=== PATIENT | male | born 1965 | race Two or more races ===

== ENCOUNTER 2020-04-24 12:36 | Inpatient (IN) | payer MEDICAID ==
[~2020-04-24] VITALS: Ht 167.6 cm; Wt 67.1 kg
--- NOTE | 2020-04-24 12:36 | NUR ---
PT WILL FROM [facility] C/O FEVER AND ALTERED MENTAL STATUS, PT IS AAOX0, NOT IN RESPIRATORY DISTRESS, HOOKED TO DISPENSARY TECHNICIAN, KEPT RESTED AND COMFORTABLE, WILL CONTINUE TO MONITOR.
--- NOTE | 2020-04-24 12:48 | NUR ---
IV LINE ESTABLISHED BLOOD DRAWN AND SENT TO LAB.
[2020-04-24] MEDS ORDERED: CEFTRIAXONE 1GM BAG (ER ONLY) 50 ML IV ONE ×2 (12:58→13:00)
[2020-04-24] MEDS ORDERED: AZITHROMYCIN 500 MG VIAL ONE (12:58)
[2020-04-24] MEDS ORDERED: DEXAMETHASONE SOD PHOSPHATE 10 MG/ML VIAL ONE (12:58)
[2020-04-24] MEDS ORDERED: ACETAMINOPHEN 650 MG/SUPP.RECT RC ONE ×2 (12:58→13:00)
[2020-04-24] MEDS ORDERED: DEXAMETHASONE SOD PHOSPHATE 10 MG/ML VIAL IV ONE (13:00)
[2020-04-24] MEDS ORDERED: AZITHROMYCIN 500 MG in IV D5W 250 ML IV ONE (13:00)
[2020-04-24] MEDS ORDERED: IV NS 0.9% 500 ML IV ONE (13:00)
--- NOTE | 2020-04-24 13:10 | NUR ---
NILESH CALLED ITS [facility].
[2020-04-24 13:12] LABS: BASOPHILS % (AUTO) 0.4 % (0.0-2.0); EOSINOPHILS % (AUTO) 7.6 % (0.0-6.0); HEMATOCRIT 37 % (39-51); HEMOGLOBIN 12.1 g/dL (13.5-17.5); LYMPHOCYTES # (AUTO) 2.3 /CMM (0.8-4.8); MEAN CORPUSCULAR HGB CONC 33 g/dl (31.0-36.0); MEAN CORPUSCULAR VOLUME 91 fL (80-96); MONOCYTES # (AUTO) 0.6 /CMM (0.1-1.30); MONOCYTES % (AUTO) 5.5 % (2.0-12.0); NEUTROPHILS # (AUTO) 6.6 /CMM (1.8-8.9); NEUTROPHILS % (AUTO) 64.5 % (43.0-81.0); PLATELET COUNT (AUTO) 449 /CMM (150-450); RED BLOOD CELL COUNT(AUTO) 4.03 MIL/uL (4.5-6.0); WHITE BLOOD COUNT (AUTO) 10.3 K/uL (4.3-11.0)
[2020-04-24 13:13] LABS: APPEARANCE,URINE Slightly Cloudy (CLEAR); BILIRUBIN,URINE Negative (NEGATIVE); BLOOD, URINE Trace-intact Ery/uL (NEGATIVE); COLOR,URINE Yellow (YELLOW); KETONES,URINE Negative (NEGATIVE); LEUKOCYTE ESTERASE ,URINE Large (NEGATIVE); NITRITE, URINE Positive (NEGATIVE); PH,URINE 7.5 (5.0-8.0); PROTEIN,URINE Negative (NEGATIVE); UGLUCOSE Negative (NEGATIVE); UROBILINOGEN,URINE 0.2 EU/dL (0.2)
[2020-04-24 13:19] LABS: CALCIUM, SERUM 8.9 mg/dL (8.5-10.1); CARBON DIOXIDE 31 mmol/L (21-32); CHLORIDE 101 mmol/L (98-107); CREATININE 0.6 mg/dL (0.6-1.3); GLUCOSE 118 mg/dL (74-106); POTASSIUM 4.3 mmol/L (3.5-5.1); SODIUM SERUM 138 mmol/L (136-145); UREA NITROGEN, BLOOD 11 mg/dL (7-18)
[2020-04-24 13:32] LABS: ALANINE AMINOTRANSFERASE 46 U/L (12-78); ALBUMIN 2.9 g/dL (3.4-5.0); ALKALINE PHOSPHATASE 117 U/L (46-116); ASPARTATE AMINOTRANSFERASE 19 U/L (15-37); B-TYPE NATRIURETIC PEPTIDE 207 PG/ML (0-125); BILIRUBIN,TOTAL 0.2 mg/dL (0.2-1.0); TOTAL PROTEIN, SERUM 7.3 g/dL (6.4-8.2)
[2020-04-24 13:37] LABS: BACTERIA,URINE 3+ /HPF (None Seen); SQUAMOUS EPITHELIAL CELL,UR Few /HPF (None Seen)
[2020-04-24 13:52] LABS: C-REACTIVE PROTEIN 1.6 mg/dL (0.0-0.9); CREATINE KINASE, TOTAL 18 U/L (39-308); FERRITIN 122 ng/mL (8-388)
--- NOTE | 2020-04-24 13:57 | NUR ---
ROOM [facility]
--- NOTE | 2020-04-24 14:32 | NUR ---
report given to fco wise for jesus alberto
--- NOTE | 2020-04-24 15:06 | NUR ---
pt transported to unit on gurney with emt and rn at bedside w/ acls protocol. nad noted during transport.
[2020-04-24 15:22] LABS: D-DIMER 1.65 mg/L(FEU (0.17-0.50)
--- NOTE | 2020-04-24 15:30 | NUR ---
RN ADMITTING NOTE Patient arrived around 151, received report from Desmond in ER. Patient arrived on gurney, A/O x0, non-verbal. T-piece Portex #[address] on 5L/min saturating 98%. Patient suctioned and presents with thick white/yellow secretions. Vital signs BP 134-80, HR 85, SpO2 98% T 97.4F. Tele monitor SR 80s. Skin assessed and skin is intact. G-tube in place, clamped. Patient given bed bath, linens and gown changed. Bed is in lowest position, side rails x3 in upright position, fall safety and aspiration precautions enforced. Isolation precautions due to pending COVID results. Will notify MD that patient has arrived and await admitting orders.
[2020-04-24 15:38] VITALS: BP 134/80
[2020-04-24 16:00] VITALS: BP 134/80
[2020-04-24] MEDS ORDERED: MAG HYDROX/AL HYDROX/SIMETH 30 ML UDC PO PRN (16:00)
[2020-04-24] MEDS ORDERED: MAGNESIUM HYDROXIDE 30 ML UDC PO PRN (16:00)
[2020-04-24] MEDS ORDERED: ONDANSETRON HCL/PF 4 MG/2 ML VIAL IVP PRN (16:00)
[2020-04-24] MEDS ORDERED: ZOLPIDEM TARTRATE 5 MG TABLET PO PRN (16:00)
[2020-04-24] MEDS ORDERED: Z GUARD REMEDY 2 OZ OINT TP PRN (16:00)
[2020-04-24] MEDS ORDERED: HYDROCODONE/APAP 5/325MG 1 EACH TABLET PO PRN (16:00)
--- NOTE | 2020-04-24 16:16 | NUR ---
RN NOTE Spoke with sub-acute RN @ [facility], they will fax over Med-Recon since it was not found in patient's records.
[2020-04-24] MEDS: DEXAMETHASONE SOD PHOSPHATE 4 MG/ML VIAL IV SCH (16:54)
[2020-04-24] MEDS: ENOXAPARIN SODIUM 40 MG/0.4 ML DISP.SYRIN SQ SCH (16:56)
[2020-04-24] MEDS: JEVITY 1.2 CAL 1,000 ML BOTTLE GT PRN (17:42)
--- NOTE | 2020-04-24 17:42 | NUR ---
RN NOTE GTF started at 30mls/hr. Will endorse to mini shifter to advance as tolerated.
--- NOTE | 2020-04-24 18:27 | NUR ---
RN CLOSING NOTE Patient is resting in bed, A/O x0, non-verbal, patient is in no acute distress at this time, t-piece in place Portex #7 on 3L/min saturating 96-100%. Patient suctioned with thick yellow/white secretions. G-tube in place running Jevity 1.2 @ 30mls/hr, will endorse to machinist 2nd shift to advance as tolerated. IV line in the LFA#18g is clean and intact running TKO. DVT pumps are in place. All patient needs met, all due medications given, patient kept clean and dry throughout shift, fall safety and aspiration precautions enforced. Will endorse to machinist 2nd shift for IRIS. Addendum: 04/24/20 at 1846 by FLAVIO GRIMM RN ISOLATION PRECAUTIONS COVID RESULTS PENDING.
[2020-04-24 20:00] VITALS: BP 131/77
--- NOTE | 2020-04-24 20:00 | NUR ---
RT NOTE PT RECEIVED ON T-PIECE @ 3LPM. SX DONE, MODERATE THICK YELLOW SECRETIONS NOTED. NO DISTRESS NOTED AT THIS TIME. CONT. PULSE OX CONNECTED. WILL MONITOR. Addendum: 04/24/20 at 2000 by IVONE MARQUEZ RT Amended: Links added.
--- NOTE | 2020-04-24 20:00 | NUR ---
RN OPENING NOTE PT RECEIVED IN BED OBTUNDED. PT IS ON 3 L VIA TRACH SATING 99%. NO RESPIRATORY DISTRESS NOTED. PT HAS TEMP 100. COOLING MEASURES PROVIDED. SAFETY MEASURES IN PLACE. BED AT LOWEST POSITION, LOCKED AND SIDE RAILS UP, HOB ELEVATED, WILL CONTINUE TO MONITOR.
[2020-04-24] MEDS: ACETAMINOPHEN 325 MG TABLET PO PRN (22:44)
--- NOTE | 2020-04-24 23:00 | NUR ---
RN NOTE PT HAS FEVER 101.3 TYLENOL 650 MG GIVEN WITH COOLING MEASURE.
--- NOTE | 2020-04-24 23:06 | NUR ---
RN CLOSING NOTE WILL ENDORSE PT TO THE NURSE FOR IRIS.
[2020-04-25] VITALS (9 sets, daily range): BP systolic 136–160; BP diastolic 46–98
--- NOTE | 2020-04-25 01:58 | NUR ---
RT NOTE INCREASED TO 8LPM DUE TO LOW SATURATION AND HIGH HEART RATE. TEMP @ 101. RN GIOVANYWNOAH AT BEDSIDE. WILL CONTINUE TO MONITOR.
--- NOTE | 2020-04-25 03:00 | NUR ---
RN OPENING NOTE RECICED A PATIENT IN BED OBTUNDED NONVERBAL,ON TRACH #7 ON OXYGEN 7L CONNECTED TO TRACH,O2:98% HR 97 ON G-TUBE FEEDING JEVITY 1.2 70 CC/HR G-TUBE SITE IS INTACT,IV SITE IS ON LEFT FOREARM 18 G,R/O FOR COVID PENDING CONTINUE TO MONITOR
--- NOTE | 2020-04-25 03:30 | NUR ---
RT NOTE TITRATED FIO2 TO 5LPM. PT APPEARS TO BE COMFORTABLE. NO DISTRESS NOTED AT THIS TIME. SX DONE, TRACH SECURED AND PATENT. CHARGE NURSE NEVA SAXENA.
[2020-04-25 06:20] LABS: BASOPHILS % (AUTO) 0.1 % (0.0-2.0); HEMATOCRIT 37 % (39-51); HEMOGLOBIN 11.9 g/dL (13.5-17.5); LYMPHOCYTES # (AUTO) 1.3 /CMM (0.8-4.8); LYMPHOCYTES % (AUTO) 11.8 % (20.0-44.0); MEAN CORPUSCULAR HGB CONC 32 g/dl (31.0-36.0); MEAN CORPUSCULAR VOLUME 92 fL (80-96); MONOCYTES # (AUTO) 0.2 /CMM (0.1-1.30); MONOCYTES % (AUTO) 1.8 % (2.0-12.0); NEUTROPHILS # (AUTO) 9.4 /CMM (1.8-8.9); NEUTROPHILS % (AUTO) 86.3 % (43.0-81.0); PLATELET COUNT (AUTO) 437 /CMM (150-450); RED BLOOD CELL COUNT(AUTO) 4.03 MIL/uL (4.5-6.0); WHITE BLOOD COUNT (AUTO) 10.9 K/uL (4.3-11.0)
[2020-04-25 06:42] LABS: CALCIUM, SERUM 9.3 mg/dL (8.5-10.1); CREATININE 0.6 mg/dL (0.6-1.3); MAGNESIUM 2.3 mg/dL (1.8-2.4); PHOSPHORUS 4.2 mg/dL (2.5-4.9); POTASSIUM 4.4 mmol/L (3.5-5.1)
[2020-04-25 06:46] LABS: THYROID STIMULATING HORMONE 0.615 uIU/mL (0.358-3.74)
[2020-04-25] MEDS: PANTOPRAZOLE 40 MG TABLET.DR PO SCH (07:31)
--- NOTE | 2020-04-25 07:31 | NUR ---
RN CLOSING NOTE PATIENT IS IN BED ON TRACH NUMBER 7 CONFUSED EYE CLOSED ON 5L OXYGEN VIA CONNECTED TO TRACH BREATHING IS EVEN AND UNLABORED NO SOB NOTED,ALL DUE MEDS GIVEN MD ORDERED VIA G-TUBE ,G-TUBE FEEDING RUNNING ON 30 CC/HR GOAL IS 70CC/HOUR.KEPT CLEAN AND DRY ALL THE TIME,ENDORSE NEXT COMING SHIFT FOR CONTINUATION OF CARE
--- NOTE | 2020-04-25 07:43 | NUR ---
ELECTRICAL MAINTENANCE MAN OPENING NOTES RECEIVED PATIENT IN BED, ASLEEP. TRACH PRESENT (#7); BREATHING IS EVEN AND UNLABORED. NO S/S OF PAIN SUCH MOANING, GUARDING OR FACIAL GRIMACING. LEFT FOREARM IV ACCESS G # 18 PRESENT AND INTACT. G-TUBE PRESENT WITH JEVITY 1.2 RUNNING AT 30 MLS/HR. SAFETY PRECAUTIONS IN PLACE; BED IN LOW POSITION AND LOCKED, RAILS UP X2, CALL LIGHT WITHIN REACH. WILL CONTINUE TO MONITOR PATIENT.
[2020-04-25] MEDS: DEXAMETHASONE SOD PHOSPHATE 4 MG/ML VIAL IV SCH ×2 (08:16→16:28)
[2020-04-25] MEDS ORDERED: ACET650S26 GT (09:17)
[2020-04-25] MEDS ORDERED: METO50TA16 GT (09:17)
[2020-04-25] MEDS ORDERED: ALBU6.7H9 IH (09:17)
[2020-04-25] MEDS ORDERED: POLY30DR EACHEYE (09:17)
[2020-04-25] MEDS ORDERED: SCOP1PAT11 TD (09:17)
[2020-04-25] MEDS ORDERED: CLON0.1T GT (09:17)
[2020-04-25] MEDS ORDERED: CHLO473M3 MM (09:17)
[2020-04-25] MEDS ORDERED: NA P133E RC (09:17)
[2020-04-25] MEDS ORDERED: MAGN400O6 GT (09:17)
[2020-04-25] MEDS ORDERED: ZINC220C6 GT (09:17)
[2020-04-25] MEDS ORDERED: AMLO10TA4 GT (09:17)
[2020-04-25] MEDS ORDERED: HYDR-4077 GT (09:17)
[2020-04-25] MEDS ORDERED: BISA10SU61 RC (09:17)
--- NOTE | 2020-04-25 10:20 | NUR ---
PHOTO BOOTH OPERATOR NOTES PUMP STOPPED DUE TO MALFUNCTION. WAITING FOR PUMP DELIVERY FROM [facility].
[2020-04-25] MEDS ORDERED: CLONIDINE HCL 0.1 MG TABLET GT PRN (11:30)
[2020-04-25] MEDS ORDERED: hydrALAZINE HCL 50 MG TABLET GT PRN (11:30)
[2020-04-25] MEDS ORDERED: MAGNESIUM HYDROXIDE 30 ML UDC GT PRN (11:30)
[2020-04-25] MEDS ORDERED: BISACODYL SUPP (10 MG) 10 MG/SUPP.RECT SUPP.RECT RC PRN (11:30)
[2020-04-25] MEDS ORDERED: ALBUTEROL SULFATE INH 18 GM HFA.AER.AD IH PRN (11:30)
[2020-04-25] MEDS ORDERED: NA PHOS,M-B/NA PHOS,DI-BA 1 EA ENEMA RC PRN (11:30)
[2020-04-25] MEDS: CEFTRIAXONE 1 G in IV D5W 50 ML IV SCH (12:15)
[2020-04-25] MEDS: SCOPOLAMINE HBR 1 EA PATCH.TD72 TD SCH (13:35)
[2020-04-25] MEDS: AZITHROMYCIN 500 MG in IV D5W 250 ML IV SCH (13:36)
--- NOTE | 2020-04-25 15:53 | NUR ---
OPTICAL BRIGHTENER MAKER HELPER NOTES DVT PUMPS ON AND WORING
--- NOTE | 2020-04-25 18:50 | NUR ---
MEDICAL PHYSIOLOGIST CLOSING NOTES PATIENT IN BED, ASLEEP ATT THIS TIME. DURING THE DAY OBTUNDED AND NO-VERBAL. TRACH PRESENT (#7); BREATHING IS EVEN AND UNLABORED. LICENSED ESTHETICIAN WITH A CURRENT READING OF SR 81 BPM. NO S/S OF PAIN THROUGHOUT THE DAY SUCH MOANING, GUARDING OR FACIAL GRIMACING. LEFT FOREARM IV ACCESS G # 18 PRESENT AND INTACT. G-TUBE PRESENT WITH JEVITY 1.2 RUNNING AT 30 MLS/HR.ALL NEEDS ATTENDED T DURING THE SHIFT. SAFETY PRECAUTIONS IN PLACE; BED IN LOW POSITION AND LOCKED, RAILS UP X2, CALL LIGHT WITHIN REACH. WILL ENDORSE TO MEDICAL ART THERAPIST NURSE.
--- NOTE | 2020-04-25 19:40 | NUR ---
RN OPENING NOTE RECEIVED PT IN BED AND APPEARS RESTING COMFORTABLY. PATIENT IS OBTUNDED, IN NO S/SX OF ACUTE DISTRESS AT THIS TIME. BREATHING IS EVEN AND UNLABORED. NOTED TRACHEOSTOMY TUBE WITH PORTEX#7 CONNECTED TO OXYGEN AT 6 LPM, SATURATING 100%; TOLERATING WELL. PATIENT ON TELE MONITOR READING SINUS RHYTHM, HR IS @84. NOTED IV SITE ON LEFT FOREARM G18; PATENT AND FLUSHING WELL,NO S/S OF INFECTION OR INFILTRATION. NOTED DVT PUMP ON BLE INTACT AND RUNNING. SAFETY MEASURES IMPLEMENTED PER PROTOCOL. PATIENT BED ALARM IS ON. HEAD OF BED ELEVATED. BED IS LOCKED, IN LOWEST POSITION AND SIDE RAILS UP. CALL LIGHT WITHIN REACH OF THE PATIENT. WILL CONTINUE TO MONITOR AND REASSESS FOR ANY CHANGES.
[2020-04-25] MEDS: ENOXAPARIN SODIUM 40 MG/0.4 ML DISP.SYRIN SQ SCH (20:53)
[2020-04-25] MEDS: METOPROLOL TARTRATE 50 MG TABLET GT SCH (20:54)
[2020-04-26] VITALS: BP_SYST 126; BP_SYST 147; BP_DIAS 76; BP_DIAS 98
[2020-04-26 04:00] VITALS: BP 148/92
--- NOTE | 2020-04-26 04:00 | NUR ---
RN NOTE NOTED PATIENT O2 SAT <90%, REPOSITIONED AND REASSESSED PATIENT, CHANGED O2 SENSORS. O2 SAT RECHECKED AND REVEALED 96% AT 6 LPM.
[2020-04-26 06:31] LABS: BASOPHILS # (AUTO) 0.1 /CMM (0.0-0.2); BASOPHILS % (AUTO) 0.7 % (0.0-2.0); HEMATOCRIT 38 % (39-51); HEMOGLOBIN 12.1 g/dL (13.5-17.5); LYMPHOCYTES # (AUTO) 1.8 /CMM (0.8-4.8); LYMPHOCYTES % (AUTO) 12.5 % (20.0-44.0); MEAN CORPUSCULAR HGB CONC 32 g/dl (31.0-36.0); MEAN CORPUSCULAR VOLUME 91 fL (80-96); MONOCYTES # (AUTO) 0.7 /CMM (0.1-1.30); MONOCYTES % (AUTO) 5.3 % (2.0-12.0); NEUTROPHILS # (AUTO) 11.4 /CMM (1.8-8.9); NEUTROPHILS % (AUTO) 81.5 % (43.0-81.0); PLATELET COUNT (AUTO) 385 /CMM (150-450); RED BLOOD CELL COUNT(AUTO) 4.15 MIL/uL (4.5-6.0)
[2020-04-26 06:44] LABS: CALCIUM, SERUM 9.4 mg/dL (8.5-10.1); CREATININE 0.6 mg/dL (0.6-1.3); MAGNESIUM 2.1 mg/dL (1.8-2.4); PHOSPHORUS 3.3 mg/dL (2.5-4.9); POTASSIUM 3.9 mmol/L (3.5-5.1)
--- NOTE | 2020-04-26 07:14 | NUR ---
RN CLOSING NOTE PATIENT REMAINS IN ROOM. NO SIGNS OF RESPIRATORY DISTRESS. SAFETY MEASURES IMPLEMENTED, BED IN LOWEST POSITION, LOCKED, SIDE RAILS UP, CALL LIGHT WITHIN REACH. ALL NEEDS AND ORDERS ADDRESSED DURING THE SHIFT. ALL DUE MEDS GIVEN ORDERED & SCHEDULED ; PATIENT TOLERATED WELL.PATIENT KEPT CLEAN AND COMFORTABLE WITHIN THE SHIFT. ENDORSED TO INCOMING SHIFT RN FOR CONTINUITY OF CARE.
[2020-04-26 08:00] VITALS: BP_SYST 143; BP_DIAS 88; BP_DIAS 90
--- NOTE | 2020-04-26 08:42 | NUR ---
WOUND CARE CONSULT: REVIEWED CHART, NURSING DOCUMENTATION AND PHOTOS WHICH SHOW CALLUS TO RT LATERAL FOOT, PRESENT ON ADMISSION. RECOMMENDATIONS MADE FOR SKIN PROTECTION. DISCUSSED WITH NURSING STAFF. FIRST STEP LOW AIRLOSS MATTRESS ON ORDER. WILL SEE PRN. IN AGREEMENT WITH PLAN OF CARE. CURRENT MARYAN SCORE IS 12.
[2020-04-26] MEDS: CHLORHEXIDINE GLUCONATE 15 ML UDC MM SCH (08:43)
[2020-04-26] MEDS: PANTOPRAZOLE 40 MG TABLET.DR PO SCH (08:44)
[2020-04-26] MEDS: METOPROLOL TARTRATE 50 MG TABLET GT SCH ×2 (08:44→21:24)
[2020-04-26] MEDS: ZINC SULFATE 220 MG CAPSULE GT SCH (08:44)
[2020-04-26] MEDS: AMLODIPINE BESYLATE 10 MG TABLET GT SCH (08:46)
[2020-04-26] MEDS: DEXAMETHASONE SOD PHOSPHATE 4 MG/ML VIAL IV SCH ×2 (08:46→17:13)
[2020-04-26] MEDS: POLYVINYL ALCOHOL/POVIDONE 0.4 ML DROPERETTE EACHEYE SCH (08:47)
[2020-04-26 12:00] VITALS: BP 143/90
[2020-04-26] MEDS: CEFTRIAXONE 1 G in IV D5W 50 ML IV SCH (12:28)
--- NOTE | 2020-04-26 13:33 | NUR ---
PATIENT COVID NEGATIVE PER DR. PENA PULMONARY NEED RESWAB. PRIMARY RN MADE AWARE.WILL CONTINUE ISO R/T RESWAB FOR COVID ORDER.
[2020-04-26 16:00] VITALS: BP 134/93
[2020-04-26] MEDS: AZITHROMYCIN 500 MG in IV D5W 250 ML IV SCH (17:14)
[2020-04-26] MEDS: ACETAMINOPHEN 325 MG TABLET PO PRN (18:20)
[2020-04-26 20:00] VITALS: BP 141/94
[2020-04-26] MEDS: ENOXAPARIN SODIUM 40 MG/0.4 ML DISP.SYRIN SQ SCH (21:25)
[2020-04-27] VITALS (7 sets, daily range): BP systolic 128–146; BP diastolic 76–98
[2020-04-27] MEDS: ACETAMINOPHEN 325 MG TABLET PO PRN ×2 (02:49→08:54)
[2020-04-27] MEDS: PANTOPRAZOLE 40 MG TABLET.DR PO SCH (07:49)
--- NOTE | 2020-04-27 08:00 | NUR ---
Tele/RN - Assessment Patient is non-communicative, opens eyes, on t-piece Portex #7 at 10lpm, saturating 98-100%, no s/s of pain, had a low grade temp last night, current temp 97.3 F. G-tube feeding Jevity 1.2 @ 40 ml/hr tolerated well, will adjust rate as ordered to reach goal of 70 ml/hr. Peripheral IV on the LFA#18g is patent and intact, running TKO. No labs ordered today. Covid retest result is still pending. Droplet and contact precautions maintained. Will continue with current plan of care.
[2020-04-27] MEDS: CHLORHEXIDINE GLUCONATE 15 ML UDC MM SCH (08:27)
[2020-04-27] MEDS: METOPROLOL TARTRATE 50 MG TABLET GT SCH ×2 (08:27→20:53)
[2020-04-27] MEDS: DEXAMETHASONE SOD PHOSPHATE 4 MG/ML VIAL IV SCH ×2 (08:28→16:20)
[2020-04-27] MEDS: ZINC SULFATE 220 MG CAPSULE GT SCH (08:28)
[2020-04-27] MEDS: AMLODIPINE BESYLATE 10 MG TABLET GT SCH (08:28)
[2020-04-27] MEDS: POLYVINYL ALCOHOL/POVIDONE 0.4 ML DROPERETTE EACHEYE SCH (08:30)
[2020-04-27] MEDS: CEFTRIAXONE 1 G in IV D5W 50 ML IV SCH (12:33)
[2020-04-27] MEDS: AZITHROMYCIN 500 MG in IV D5W 250 ML IV SCH (13:30)
--- NOTE | 2020-04-27 16:00 | NUR ---
Tele/RN - Notes GTF Jevity 1.2 rate increased to 50 ml/hr,no residual seen. Aspiration precautions maintained. Will continue to monitor.
[2020-04-27] MEDS: CEFEPIME 2 GM in IV D5W 100 ML IV SCH (18:20)
--- NOTE | 2020-04-27 18:33 | NUR ---
Tele/RN - End of shift summary No significant change in condition seen, tolerated tube feeding well at 50 ml/hr, will adjust to reach goal of 70 ml/hr. Patient remain afebrile, without distress, no s/s of pain, tele shows SR at this time. Will endorse to night RN accordingly.
--- NOTE | 2020-04-27 19:20 | NUR ---
RN OPENING NOTES: PATIENT IN BED, NONVERBAL, BUT RESPONSIVE WITH EYES OPENING SPONTANEOUSLY TO TACTILE STIMULI. ON T-PIECE AT 8 LITERS, TOLERATING WELL, NO RESPIRATORY DISTRESS. SPO2 >95%. ON SAP INTEGRATION ARCHITECT, SHOWING NSR, HR 60s. SAFETY PRECAUTIONS IMPLEMENTED. BED LOCKED, LOW POSITION, SIDE RAILS X 2 UP, HOB ELEVATED. CALL LIGHT WITHIN REACH. WILL CONT. TO MONITOR.
[2020-04-27] MEDS: ENOXAPARIN SODIUM 40 MG/0.4 ML DISP.SYRIN SQ SCH (20:52)
[2020-04-28] VITALS (7 sets, daily range): BP systolic 133–144; BP diastolic 68–86
--- NOTE | 2020-04-28 00:18 | NUR ---
RN NOTE: HOSEA DELCID SPOKE WITH KIMBERLEE FROM LAB. PATIENT IS NEGATIVE FOR COVID.
[2020-04-28] MEDS: JEVITY 1.2 CAL 1,000 ML BOTTLE GT PRN (02:11)
[2020-04-28] MEDS: CEFEPIME 2 GM in IV D5W 100 ML IV SCH ×2 (05:58→17:33)
--- NOTE | 2020-04-28 06:00 | NUR ---
RN NOTE: PATIENT NOW NEGATIVE X2 FOR COVID. PAGED DR. PENA TO ASK IF PATIENT CAN BE TRANSFERRED TO NONCOVID UNIT. AWAITING FOR RESPONSE.
--- NOTE | 2020-04-28 06:28 | NUR ---
RN CLOSING NOTE: PATIENT IN BED, EYES OPEN, NONVERBAL. ON T-PIECE AT 8 LITERS. NO RESPIRATORY DISTRESS. SPO2 >95%. NO S/S OF PAIN. PATIENT'S GTF REMAINS AT 50 MLS/HR DUE TO MODERATE RESIDUAL 20-50 MLS, GOAL 70 MLS/HR. ENDORSE TO ONCOMING RN.
[2020-04-28] MEDS: POLYVINYL ALCOHOL/POVIDONE 0.4 ML DROPERETTE EACHEYE SCH (08:50)
--- NOTE | 2020-04-28 08:54 | NUR ---
[facility] RN OPENING NOTES TRANSFER PT TO 324 WITH ACLS PROTOCOL
--- NOTE | 2020-04-28 08:57 | NUR ---
PRODUCT SUPPORT CONSULTANTLOAN MANAGER NOTES RECEIVED A TRANSFER FROM [facility]. REPORT GIVEN BY FARHANA CAMPBELL. PATIENT IN MEDICALLY STABLE CONDITION, ON VENT, SATURATING AT 99%. G-TUBE IN PLACE RUNNING JEVITY 1.2 AT 50 MLS /HR. LAC IV ACCESS G # 18 PRESENT AND INTACT. SAFETY PRECAUTIONS IN PLACE; BED IN LOW POSITION AND LOCKED, RAILS UP X2, CALL LIGHT WITHIN REACH. WILL CONTINUE TO MONITOR PATIENT.
[2020-04-28] MEDS: ZINC SULFATE 220 MG CAPSULE GT SCH (09:05)
[2020-04-28] MEDS: AMLODIPINE BESYLATE 10 MG TABLET GT SCH (09:05)
[2020-04-28] MEDS: DEXAMETHASONE SOD PHOSPHATE 4 MG/ML VIAL IV SCH ×2 (09:05→16:43)
[2020-04-28] MEDS: METOPROLOL TARTRATE 50 MG TABLET GT SCH ×2 (09:05→20:02)
[2020-04-28] MEDS: CHLORHEXIDINE GLUCONATE 15 ML UDC MM SCH (09:06)
[2020-04-28] MEDS: PANTOPRAZOLE 40 MG TABLET.DR PO SCH (09:07)
[2020-04-28] MEDS: AZITHROMYCIN 500 MG in IV D5W 250 ML IV SCH (13:10)
[2020-04-28] MEDS: SCOPOLAMINE HBR 1 EA PATCH.TD72 TD SCH (14:13)
--- NOTE | 2020-04-28 18:39 | NUR ---
COMPUTATIONAL THEORY SCIENTIST CLOSING NOTES PATIENT IN BED, ASLEEP AT THIS TIME. DURING THE DAY OBTUNDED AND NON-VERBAL. TRACH PRESENT (#7); BREATHING IS EVEN AND UNLABORED SATURATING AT 95% AT THIS TIME. VACUUM BOTTLE ASSEMBLER WITH A CURRENT READING OF SR 66 BPM. NO S/S OF PAIN THROUGHOUT THE DAY SUCH MOANING, GUARDING OR FACIAL GRIMACING. LAC IV ACCESS G # 18 PRESENT AND INTACT. G-TUBE PRESENT WITH JEVITY 1.2 RUNNING AT 50 MLS/HR. ALL NEEDS ATTENDED DURING THE SHIFT. SAFETY PRECAUTIONS IN PLACE; BED IN LOW POSITION AND LOCKED, RAILS UP X2, CALL LIGHT WITHIN REACH. WILL ENDORSE TO PLACER MINER NURSE.
--- NOTE | 2020-04-28 19:30 | NUR ---
teletype or varitype keyboard operator opening note received patient in bed. obtunded. on t-piece running at 6l/min with cool aerosol. portex #7. respirations are even and unlabored,. no s/s sob noted. continuos pulse ox connected at bedside. no s/s pain at this time. external tele monitor reads sinus rhythm hr 69. in no apparent distress. iv access in lac#18 running tko. gtube is present, residual 25ml flushed with no resistance, feeding Jevity running @50ml/hr. bed is low an dlocked, hob elevated in semi fowlers, side rials up x2, call light within reach, will continue to monitor.
--- NOTE | 2020-04-28 19:41 | NUR ---
RT NOTE PT RECEIVED ON T-PIECE @ 8LPM. SX DONE, MODERATE THICK YELLOW SECRETIONS NOTED. NO DISTRESS NOTED AT THIS TIME. CONT. PULSE OX CONNECTED. WILL MONITOR. Addendum: 04/28/20 at 1942 by DAYANA ERICKSON RT Amended: Links added.
[2020-04-28] MEDS: ENOXAPARIN SODIUM 40 MG/0.4 ML DISP.SYRIN SQ SCH (20:04)
[2020-04-29] VITALS: BP 135/87
[2020-04-29 04:00] VITALS: BP 142/89
[2020-04-29 04:45] VITALS: BP 142/89
--- NOTE | 2020-04-29 05:07 | NUR ---
telecommunications support note 0300 checked residual 60ml, stopped feeding, 0400 check residual 45 ml, 0500 checked residual 10ml, flushed and begain feedin @50ml/hr. will endorse to next shift and continue to monitor.
[2020-04-29] MEDS: CEFEPIME 2 GM in IV D5W 100 ML IV SCH ×2 (05:10→17:25)
--- NOTE | 2020-04-29 06:15 | NUR ---
telephone sterilizer closing note patient in bed. obtunded. on t-piece running at 8l/min with cool aerosol. portex #7. respirations are even and unlabored. no sob noted. continuos pulse ox connected at bedside. no s/s pain. external tele monitor reads sinus rhythm and sinus wilner. no distress. iv access maintained in lac#18 running tko. gtube feeding Jevity running @50ml/hr. bed is low and locked, hob elevated in semi fowlers, side rials up x2, call light within reach, will endorse to next shift
[2020-04-29] MEDS: PANTOPRAZOLE 40 MG TABLET.DR PO SCH (06:34)
[2020-04-29 08:00] VITALS: BP 139/97
--- NOTE | 2020-04-29 08:00 | NUR ---
television producer opening note received patient in bed. obtunded. on t-piece running at 6l/min with cool aerosol. portex #7. respirations are even and unlabored,. no s/s sob noted. continuos pulse ox connected at bedside. no s/s pain at this time. external tele monitor reads sinus wilner,hr 59. in no apparent distress. iv access in lac#18 running tko. gtube is present, residual 25ml flushed with no resistance, feeding Jevity running @50ml/hr. bed is low and locked, hob elevated in semi fowlers, side rails up x2, call light within reach, will continue to monitor.
--- NOTE | 2020-04-29 08:04 | NUR ---
WOUND CARE CONSULT: PT SEEN FOR SKIN ASSESSMENT AND NOTED TO HAVE RT FOOT CALLUS AND SACRAL SCAR, PRESENT ON ADMISSION. RECOMMENDATIONS MADE FOR SKIN PROTECTION. DISCUSSED WITH NURSING STAFF. WILL SEE PRN. FIGUEREDO IN AGREEMENT WITH PLAN OF CARE. Addendum: 04/29/20 at 0805 by RAS SALVADOR WNDNU Amended: Links added.
[2020-04-29 08:14] LABS: BASOPHILS # (AUTO) 0.1 /CMM (0.0-0.2); BASOPHILS % (AUTO) 0.5 % (0.0-2.0); HEMATOCRIT 41 % (39-51); LYMPHOCYTES # (AUTO) 1.7 /CMM (0.8-4.8); LYMPHOCYTES % (AUTO) 16.5 % (20.0-44.0); MEAN CORPUSCULAR HGB CONC 32 g/dl (31.0-36.0); MEAN CORPUSCULAR VOLUME 92 fL (80-96); MONOCYTES # (AUTO) 0.5 /CMM (0.1-1.30); MONOCYTES % (AUTO) 4.9 % (2.0-12.0); NEUTROPHILS # (AUTO) 8.2 /CMM (1.8-8.9); NEUTROPHILS % (AUTO) 78.1 % (43.0-81.0); PLATELET COUNT (AUTO) 472 /CMM (150-450); RED BLOOD CELL COUNT(AUTO) 4.43 MIL/uL (4.5-6.0); WHITE BLOOD COUNT (AUTO) 10.5 K/uL (4.3-11.0)
[2020-04-29 08:24] LABS: CREATININE 0.6 mg/dL (0.6-1.3); MAGNESIUM 2.2 mg/dL (1.8-2.4); PHOSPHORUS 3.4 mg/dL (2.5-4.9)
[2020-04-29] MEDS: POLYVINYL ALCOHOL/POVIDONE 0.4 ML DROPERETTE EACHEYE SCH (09:00)
[2020-04-29] MEDS: METOPROLOL TARTRATE 50 MG TABLET GT SCH (09:00)
[2020-04-29] MEDS: DEXAMETHASONE SOD PHOSPHATE 4 MG/ML VIAL IV SCH ×2 (09:09→17:25)
[2020-04-29] MEDS: ZINC SULFATE 220 MG CAPSULE GT SCH (09:09)
[2020-04-29] MEDS: CHLORHEXIDINE GLUCONATE 15 ML UDC MM SCH (09:10)
[2020-04-29] MEDS: AMLODIPINE BESYLATE 10 MG TABLET GT SCH (09:10)
[2020-04-29] MEDS: AZITHROMYCIN 500 MG in IV D5W 250 ML IV SCH (14:36)
[2020-04-29] MEDS ORDERED: CEFE2FRO IV (15:44)
[2020-04-29] MEDS ORDERED: PRED20TA GT (15:44)
[2020-04-29] MEDS ORDERED: PANT40TA2 GT (15:44)
[2020-04-29 16:00] VITALS: BP 141/81
--- NOTE | 2020-04-29 18:17 | NUR ---
REPORT [facility].PT WILL CONTINUE CEFEPIME Q 12 HRS FOR 5 MORE DAYS. GT INTACT FOR FEEDING. IV H/L TO LT AC REMAINS INTACT AND PATENT. AMBULANCE CALLED SAYING THAT THE UPHOLSTERER APPRENTICE TIME WAS MOVED TO 1900. CHARGE NURSE AWARE.
--- NOTE | 2020-04-29 18:49 | NUR ---
DISCHARGED PT VIA AMBULANCE WITH STABLE V/S.
== END 2020-04-29 18:53 | DRG 133 ==
LOC: ER 12:39 → TELE1 14:03 → TELE 04-28 07:38
PROVIDERS: ADMIT Student in an Organized Health Care Education/Training Program; ATTEND Nurse Practitioner Acute Care
DX: J96.20 Acute and chronic respiratory failure, unspecified whether with hypoxia or hypercapnia (principal); E44.0 Moderate protein-calorie malnutrition; Z93.0 Tracheostomy status; N39.0 Urinary tract infection, site not specified; I10 Essential (primary) hypertension; D64.9 Anemia, unspecified; R32 Unspecified urinary incontinence; E88.09 Other disorders of plasma-protein metabolism, not elsewhere classified; Z68.26 Body mass index [BMI] 26.0-26.9, adult; Z86.73 Personal history of transient ischemic attack (TIA), and cerebral infarction without residual deficits; R13.10 Dysphagia, unspecified; Z93.1 Gastrostomy status; G93.40 Encephalopathy, unspecified; B96.5 Pseudomonas (aeruginosa) (mallei) (pseudomallei) as the cause of diseases classified elsewhere
CPT/HCPCS: 31720; 36415; 71045-TC; 80048-TC; 80053-TC; 80061-TC; 81000-TC; 82550-TC; 82728-TC; 83605-TC; 83615-TC; 83735-TC; 83880; 84100-TC; 84443-TC; 84484-TC; 85025-TC; 85378-TC; 85385-TC; 85730-TC; 86140-TC; 87040-TC; 87081-TC; 87086-TC; 87186-TC; 94640-TC; 94760-TC; 94762-TC; 94799-TC; 99082-TC; G0378; J0456; J0692; J0696; J1100; J1650; J7040; J7050; J7060; U0003-CS